=== PATIENT | female | born 1980 | race African-American/Black ===

== ENCOUNTER 2016-10-07 20:48 | Emergency (ER) | payer MEDICAID ==
[~2016-10-07] VITALS: Ht 162.6 cm; Wt 108.2 kg
[~2016-10-07 20:48] MED LIST: DIVA250T4 PO; DIVA500T35 PO; FERR325C PO; GABA-531 PO; MIRT30 PO; PANT40TA25 PO; PRAZ2 PO; QUET200T PO; SIME40DR2 PO
[2016-10-07] MEDS ORDERED: HYDROCODONE/ACETAMINOPHEN 5-325 MG TABLET PO ONE (23:30)
[2016-10-07 23:50] VITALS: BP 114/73
== END 2016-10-08 00:03 | disposition home or self-care (01) ==
LOC: EMS 20:51
DX: S82.831D Other fracture of upper and lower end of right fibula, subsequent encounter for closed fracture with routine healing (principal); G43.909 Migraine, unspecified, not intractable, without status migrainosus; F17.210 Nicotine dependence, cigarettes, uncomplicated; Z91.018 Allergy to other foods; Z88.8 Allergy status to other drugs, medicaments and biological substances; X58.XXXD Exposure to other specified factors, subsequent encounter
CPT/HCPCS: 99284; 99406

== ENCOUNTER 2016-11-05 10:00 | Emergency (ER) | payer MEDICAID ==
[~2016-11-05] VITALS: Ht 162.6 cm; Wt 97.7 kg
[2016-11-05 10:17] VITALS: BP 136/104
== END 2016-11-05 12:03 | disposition home or self-care (01) ==
LOC: EMS 10:01
DX: S82.61XA Displaced fracture of lateral malleolus of right fibula, initial encounter for closed fracture (principal); F17.210 Nicotine dependence, cigarettes, uncomplicated; Z88.8 Allergy status to other drugs, medicaments and biological substances; Z91.018 Allergy to other foods; W18.39XA Other fall on same level, initial encounter; Y93.89 Activity, other specified; Y92.89 Other specified places as the place of occurrence of the external cause; Y99.8 Other external cause status
CPT/HCPCS: 99284

== ENCOUNTER 2017-02-15 10:12 | Emergency (ER) | payer MEDICAID ==
[~2017-02-15] VITALS: Ht 162.6 cm; Wt 100.0 kg
[~2017-02-15 10:12] MED LIST changes: -SIME40DR2 PO
[2017-02-15] MEDS ORDERED: DULO20CA30 PO (10:28)
[2017-02-15] MEDS ORDERED: QUET100T PO (10:28)
[2017-02-15] MEDS ORDERED: CITA10TA68 PO (10:28)
[2017-02-15] MEDS ORDERED: MORPHINE SULFATE 2 MG/ML SYRINGE IM ONE (14:30)
[2017-02-15 14:34] VITALS: BP 132/79
== END 2017-02-15 15:33 | disposition home or self-care (01) ==
LOC: EMS 10:15
DX: S93.401A Sprain of unspecified ligament of right ankle, initial encounter (principal); F17.210 Nicotine dependence, cigarettes, uncomplicated; Z91.030 Bee allergy status; Z91.018 Allergy to other foods; X50.1XXA Overexertion from prolonged static or awkward postures, initial encounter; Y93.89 Activity, other specified; Y92.89 Other specified places as the place of occurrence of the external cause; Y99.8 Other external cause status
CPT/HCPCS: 29515; 73610; 73630; 96372; 99284; J2270

== ENCOUNTER 2017-10-13 20:16 | Emergency (ER) | payer MEDICAID ==
[~2017-10-13] VITALS: Ht 162.6 cm; Wt 100.0 kg
[~2017-10-13 20:16] MED LIST changes: +CITA10TA68 PO; -DIVA250T4 PO; +DULO20CA30 PO; -MIRT30 PO; +QUET100T PO
[2017-10-13] MEDS ORDERED: RISP2 PO (20:38)
[2017-10-13] MEDS ORDERED: GABA-533 PO (20:38)
[2017-10-13] MEDS ORDERED: GABA-531 PO (20:38)
[2017-10-13] MEDS ORDERED: QUET200T PO (20:38)
[2017-10-13] MEDS ORDERED: ALPR0.255 PO (20:38)
[2017-10-13] MEDS ORDERED: FIORC PO (20:38)
[2017-10-13] MEDS ORDERED: LITH300C3 PO (20:38)
[2017-10-13] MEDS ORDERED: HYDROCODONE/ACETAMINOPHEN 5-325 MG TABLET PO ONE (21:15)
[2017-10-13] MEDS ORDERED: SUMAtriptan SUCCINATE 6 MG/0.5 ML VIAL SQ ONE (21:15)
[2017-10-13] MEDS ORDERED: SODIUM CHLORIDE 0.9% 1,000 ML IV ONE (21:33)
[2017-10-13] MEDS ORDERED: KETOROLAC TROMETHAMINE 30 MG/ML VIAL IVP ONE (21:45)
[2017-10-13] MEDS ORDERED: METOCLOPRAMIDE HCL 5 MG/ML 2 ML VIAL IVP ONE (21:45)
[2017-10-13] MEDS ORDERED: DiphenhydrAMINE HCL 50 MG/ML VIAL IVP ONE (21:45)
[2017-10-13] MEDS ORDERED: VALPROATE SODIUM 1,000 MG in DEXTROSE 5%-WATER 100 ML IV ONE (22:15)
[2017-10-13 23:12] VITALS: BP 130/74
== END 2017-10-13 23:40 | disposition home or self-care (01) ==
LOC: EMS 20:17
DX: S90.01XA Contusion of right ankle, initial encounter (principal); G43.909 Migraine, unspecified, not intractable, without status migrainosus; R56.9 Unspecified convulsions; K21.9 Gastro-esophageal reflux disease without esophagitis; I10 Essential (primary) hypertension; F17.210 Nicotine dependence, cigarettes, uncomplicated; Z91.030 Bee allergy status; Z91.011 Allergy to milk products; Z91.018 Allergy to other foods; X58.XXXA Exposure to other specified factors, initial encounter; Y93.89 Activity, other specified; Y92.89 Other specified places as the place of occurrence of the external cause; Y99.8 Other external cause status
CPT/HCPCS: 36415; 73610; 80164; 96361; 96365; 96372; 96375; 99285; 99406; J1200; J1885; J2765; J3030; J3490; J7030; J7060

== ENCOUNTER 2018-04-09 19:49 | Emergency (ER) | payer MEDICAID ==
[~2018-04-09] VITALS: Ht 162.6 cm; Wt 115.5 kg
[~2018-04-09 19:49] MED LIST changes: +ALPR0.255 PO; +DIVA-78 PO; -DIVA500T35 PO; -DULO20CA30 PO; -FERR325C PO; +FIORC PO; +GABA-533 PO; +LITH300C3 PO; -QUET100T PO; +RISP2 PO
[2018-04-09 21:57] LABS: BASOPHILS % (AUTO) 0.7 % (0.0-2.0); EOSINOPHILS % (AUTO) 5.8 % (1.0-6.0); HEMATOCRIT 28.7 % (36-46); HEMOGLOBIN 8.9 g/dL (12.0-16.0); LYMPHOCYTES # (AUTO) 3.3 K/uL (1.0-4.8); LYMPHOCYTES % (AUTO) 42.1 % (22.0-44.0); MEAN CORPUSCULAR HEMOGLOBIN 22.4 pg (26.0-34.0); MEAN CORPUSCULAR HGB CONC 31.1 G/dL (31.0-37.0); MEAN CORPUSCULAR VOLUME 72 fL (80-100); MONOCYTES # (AUTO) 0.5 K/uL (0.1-1.0); MONOCYTES % (AUTO) 6.3 % (2.0-9.0); NEUTROPHILS # (AUTO) 3.6 K/uL (1.8-7.7); NEUTROPHILS % (AUTO) 45.1 % (40.0-70.0); PLATELET COUNT (AUTO) 259 K/uL (150-450); RED BLOOD CELL COUNT(AUTO) 3.99 MIL/uL (4.00-5.20); RED CELL DISTRIBUTION WIDTH 19.7 % (11.5-14.5)
[2018-04-09 22:06] LABS: ANION GAP 7 mmol/L (8-16); CALCIUM, TOTAL 8.7 mg/dL (8.8-10.5); CARBON DIOXIDE 27 mmol/L (22-29); CHLORIDE 103 mmol/L (98-107); CREATININE 0.77 mg/dL (0.60-1.30); GLOMERULAR FILTR. RATE CALC > 60 mL/min (>60); GLUCOSE,RANDOM 107 mg/dL (70-110); POTASSIUM 3.9 mmol/L (3.5-5.1); SODIUM SERUM 137 mmol/L (136-145); UREA NITROGEN, BLOOD 13 mg/dL (7-18)
[2018-04-09 22:18] LABS: ALANINE AMINOTRANSFERASE 17 U/L (12-78); ALBUMIN 2.8 g/dL (3.4-5.0); ALKALINE PHOSPHATASE 79 U/L (46-116); ASPARTATE AMINOTRANSFERASE 20 U/L (15-37); BILIRUBIN,TOTAL 0.2 mg/dL (0.1-1.0); TOTAL PROTEIN, SERUM 6.9 g/dL (6.4-8.2)
[2018-04-10] MEDS ORDERED: SODIUM CHLORIDE 0.9% 1,000 ML IV ONE (00:30)
[2018-04-10] MEDS ORDERED: METOCLOPRAMIDE HCL 5 MG/ML 2 ML VIAL IVP ONE (00:45)
[2018-04-10] MEDS ORDERED: KETOROLAC TROMETHAMINE 30 MG/ML VIAL IVP ONE (01:15)
[2018-04-10 02:40] VITALS: BP 133/78
== END 2018-04-10 02:56 | disposition home or self-care (01) ==
LOC: EMS 19:50
DX: G43.909 Migraine, unspecified, not intractable, without status migrainosus (principal); F41.9 Anxiety disorder, unspecified; F31.9 Bipolar disorder, unspecified; K21.9 Gastro-esophageal reflux disease without esophagitis; I10 Essential (primary) hypertension; F17.210 Nicotine dependence, cigarettes, uncomplicated; Z90.49 Acquired absence of other specified parts of digestive tract; Z98.51 Tubal ligation status; Z91.030 Bee allergy status; Z91.011 Allergy to milk products; Z91.018 Allergy to other foods; Z79.82 Long term (current) use of aspirin; Z98.84 Bariatric surgery status
CPT/HCPCS: 36415; 80053; 84702; 85025; 96374; 96375; 99285; J1885; J2765; J7030

== ENCOUNTER 2018-05-02 21:29 | Emergency (ER) | payer MEDICAID ==
[~2018-05-02] VITALS: Ht 162.6 cm; Wt 115.1 kg
[2018-05-02] MEDS ORDERED: RIZA10TA27 PO (21:41)
[2018-05-02] MEDS ORDERED: CYCL10 PO (21:41)
[2018-05-02] MEDS ORDERED: COMP5 PO (21:41)
[2018-05-02] MEDS: KETOROLAC TROMETHAMINE 30 MG/ML VIAL IVP ONE (23:21)
[2018-05-02] MEDS: MethylPREDNISolone SOD SUCC 125 MG/2 ML VIAL IVP ONE (23:21)
[2018-05-02] MEDS: ONDANSETRON HCL 4 MG/2 ML VIAL IVP ONE (23:21)
[2018-05-02] MEDS: MAGNESIUM SULFATE 2 GM/WATER 50 ML IV ONE (23:22)
[2018-05-02] MEDS: SODIUM CHLORIDE 0.9% 1,000 ML IV ONE (23:22)
[2018-05-02] MEDS: CARISOPRODOL 350 MG TABLET PO ONE (23:26)
[2018-05-03 00:19] VITALS: BP 122/67
[2018-05-03] MEDS: HYDROCODONE/ACETAMINOPHEN 10-325 MG TABLET PO ONE (00:21)
== END 2018-05-03 00:44 | disposition home or self-care (01) ==
LOC: EMS 21:31
DX: G43.909 Migraine, unspecified, not intractable, without status migrainosus (principal); M54.12 Radiculopathy, cervical region; F17.210 Nicotine dependence, cigarettes, uncomplicated; F41.9 Anxiety disorder, unspecified; F31.9 Bipolar disorder, unspecified; K21.9 Gastro-esophageal reflux disease without esophagitis; I10 Essential (primary) hypertension; Z90.49 Acquired absence of other specified parts of digestive tract; Z98.51 Tubal ligation status; Z98.84 Bariatric surgery status; Z98.890 Other specified postprocedural states; Z79.899 Other long term (current) drug therapy; Z88.8 Allergy status to other drugs, medicaments and biological substances; Z91.030 Bee allergy status; Z91.018 Allergy to other foods
CPT/HCPCS: 96374; 96375; 99284; J1885; J2405; J2930; J3475; J7030